=== PATIENT | female | born 1985 | race Caucasian/White ===

== ENCOUNTER 2017-12-01 16:52 | Day surgery (SDC) | payer OTHER ==
[2017-12-01] MEDS ORDERED: fentaNYL 100 MCG/2 ML INJ IVP ONE (17:30)
[2017-12-01] MEDS ORDERED: NS 1,000 ML IV ONE (17:30)
[2017-12-01 17:33] LABS: PLATELET COUNT 277 10^3/uL (150-400)
--- NOTE | 2017-12-01 17:34 | EDPHY ---
H & P Smoking Status: Never smoked Time Seen by Provider: 12/01/17 17:12 HPI/ROS: CHIEF COMPLAINT: Vaginal bleeding HISTORY OF PRESENT ILLNESS: 32-year-old female presents to the emergency department by private vehicle with her complaining of profuse vaginal bleeding. The patient had a recent miscarriage. She saw her OBGYN, Dr. Torrez , earlier today and had an ultrasound in the office which reveals some retained products. She is scheduled to have a D&C tomorrow morning. She states that when she got home from the office today she began profusely bleeding and passed "too large masses". She states she was bleeding heavily up until about an hour ago or so. She was beginning to feel lightheaded and her brought her to the emergency department for evaluation. She states that she is still having episodes of vaginal bleeding although it has slowed down some. She does feel a bit dizzy and weak. She is having abdominal cramping. She says that this is her 1st . She knows that she has a negative and requires RhoGAM and she has not received this yet. REVIEW OF SYSTEMS: Constitutional: No fever, no chills. Eyes: No double or blurry vision. ENT: No sore throat. Respiratory: No cough, no shortness of breath. Cardiac: No chest pain. Gastrointestinal: Abdominal pain as above. No vomiting or diarrhea. Genitourinary: No dysuria. Musculoskeletal: No neck or back pain. Skin: No rashes. Neurological: No headache. (Savana Tian) Past Medical/Surgical History: Last menstrual period 09/09/2017 (Savana Tian) Social History: (Savana Tian) Physical Exam: General Appearance: Alert, no distress. She appears pale. 114/77, heart rate 65, 99% on room air. Eyes: Pupils equal and round. Extraocular motions are all intact. ENT: Mouth: Mucous membranes moist. Respiratory: No wheezing, rhonchi, or rales, lungs are clear to auscultation. Cardiovascular: Regular rate and rhythm. Gastrointestinal: Abdomen is soft. She has tenderness with palpation especially the suprapubic area. There is no rebound, guarding or masses noted. Neurological: Alert and oriented x 3, cranial nerves II through XII grossly intact Skin: Warm and dry, no rashes. Musculoskeletal: Nontender to palpate along the cervical, thoracic or lumbar spine. Neck is supple. Extremities: Full range of motion and no peripheral edema. Psychiatric: Patient is oriented X 3, there is no agitation. (Savana Tian) Constitutional: Initial Vital Signs Temperature (C) 36.6 C 12/01/17 16:55 Heart Rate 64 12/01/17 16:55 Respiratory Rate 16 12/01/17 16:55 Blood Pressure 85/62 L 12/01/17 16:55 O2 Sat (%) 99 12/01/17 16:55 O2 Delivery Mode Room Air Allergies/Adverse Reactions: cefaclor [From Ceclor] Allergy (Verified 12/01/17 17:02) Medical Decision Making - Diagnostics Imaging: Discussed imaging studies w/ will call order clerk Radiologist ED Course/Re-evaluation: 32-year-old female presents to the emergency department with vaginal bleeding and miscarriage. The patient states that she saw her OBGYN earlier this morning and had evidence of retained products on bedside ultrasound. She is scheduled for D&C tomorrow morning. Presents with now vaginal bleeding. The patient's initial blood pressure was 80/60 and she appeared very pale. She received 2 L of IV normal saline and she is lying supine. She is feeling a bit better although when she sits up she feels very dizzy. Apparently when she ambulated to bathroom she passed 2 large clots and this was prior to the ultrasound. Ultrasound reveals evidence of retained products. I spoke with the on-call OBGYN, Dr. Jaquez, who offered admission to the hospital for D&C now or admission to the hospital for observation or she may be discharged home and likely miscarriage at home. The patient however feels very dizzy. She still looks a bit pale. She had a drop in her hematocrit from 40-37 % today. She has received 2 L of IV normal saline. The case was discussed with Dr. Loreto Olivo, supervising physician, who did not directly evaluate the patient but agrees with treatment plan. The patient elected to be admitted to Labor and delivery for D and C now. (Savana Tian) This pt was seen and examined by me. She is pale and dizzy after passing a large amount of blood into the toilet. Abd is soft, suprapubic tenderness. Will need admission for D+C. Hct 37, no indication for PRBC at this point. I agree with the assessment and plan. (Loreto Olivo) Differential Diagnosis: Including but not limited to retained products, missed , spontaneous , anemia (Savana Tian) - Data Points Laboratory Results: Laboratory Results 12/01/17 17:23 Medications Given: Discontinued Medications Doxycycline Hyclate (Doxycycline Hyclate) 100 mg PO ONCALL ONE PRN Reason: Protocol Stop: 12/01/17 20:08 Last Admin: 12/01/17 21:04 Dose: 100 mg Fentanyl (Sublimaze) 50 mcg IVP EDNOW ONE Stop: 12/01/17 17:31 Last Admin: 12/01/17 17:55 Dose: 50 mcg Sodium Chloride (Ns) 1,000 mls @ 0 mls/hr IV ONCE ONE PRN Reason: Wide Open Stop: 12/01/17 17:31 Last Admin: 12/01/17 17:40 Dose: 1,000 mls Ketorolac Tromethamine (Toradol) 30 mg IVP EDNOW ONE Stop: 12/01/17 17:57 Last Admin: 12/01/17 18:21 Dose: 30 mg Departure - Departure Disposition: To OP Cath/Surgery Clinical Impression: Miscarriage, Vaginal bleeding Condition: Good
[2017-12-01] MEDS ORDERED: KETOROLAC 30 MG/1 ML SDV IVP ONE (17:56)
[2017-12-01 19:36] VITALS: PULSE 80
[2017-12-01] MEDS ORDERED: DOXYCYCLINE HYCLATE 100 MG CAP/TAB PO ONE (20:07)
[2017-12-01] MEDS ORDERED: LR 1,000 ML IV SCH (20:30)
--- NOTE | 2017-12-01 20:39 | PDANEPAE ---
ANE History of Present Illness Missed Ab. ANE Past Medical History - Cardiovascular History Hx Hypertension: No Hx Arrhythmias: No Hx Chest Pain: No Hx Coronary Artery / Peripheral Vascular Disease: No Hx CHF / Valvular Disease: No Hx Palpitations: No - Pulmonary History Hx COPD: No Hx Asthma/Reactive Airway Disease: No Hx Recent Upper Respiratory Infection: No Hx Oxygen in Use at Home: No Hx Sleep Apnea: No ANE Review of Systems Review of systems is: negative Review of Systems: - Exercise capacity Exercise capacity: >=4 METS ANE Patient History - Allergies Allergies/Adverse Reactions: cefaclor [From Ceclor] Allergy (Verified 12/01/17 17:02) - Home Medications Home Medications: Vit27&Calcium/Iron/FA [] 1 each PO 12/01/17 [Last Taken Unknown ] - NPO status NPO Status: no food or drink >8 hours - Anes Hx Anes Hx: no prior problems - Smoking Hx Smoking Status: Never smoked Marijuana use: No - Alcohol Use Alcohol Use: Rarely - Family Anes Hx Family Anes Hx: none ANE Labs/Vital Signs - Labs Result Diagrams: 12/01/17 17:23 - Vital Signs Blood Pressure: 111/68 Heart Rate: 80 Respiratory Rate: 18 O2 Sat (%): 96 ANE Physical Exam - Airway Neck exam: FROM Mallampati Score: Class 1 Mouth exam: normal dental/mouth exam - Pulmonary Pulmonary: no respiratory distress - Cardiovascular Cardiovascular: regular rate and rhythym - ASA Status ASA Status: I ANE Anesthesia Plan Anesthesia Plan: GA with mask
[2017-12-01] MEDS ORDERED: METOCLOPRAMIDE 10 MG/2 ML VIAL ONE (20:46)
[2017-12-01] MEDS ORDERED: MIDAZOLAM 2 MG/2 ML VIAL ONE (20:47)
[2017-12-01] MEDS ORDERED: CITRIC ACID/SODIUM CITRATE 30 ML UDCUP ONE (20:47)
--- NOTE | 2017-12-01 20:59 | PDHPUP ---
History & Physical Update H&P update statement: This history and physical update is based on an assessment of the patient which was completed after admission or registration (within 24 hours), but prior to the surgery/procedure. H&P changes: Pt is now an incomplete Ab with heavy bleeding and cramps with u/s showing evidence of persistent thick lining. presented to ER with b/p 90/50 - now feeling better with fentynl and toradol
[2017-12-01] MEDS ORDERED: PROPOFOL/EMULSION 500 MG/50 ML BOTTLE IV ONE (21:05)
[2017-12-01] MEDS ORDERED: fentaNYL 100 MCG/2 ML INJ ONE (21:06)
[2017-12-01] MEDS ORDERED: DEXAMETHASONE 4 MG/ML VIAL ONE (21:07)
[2017-12-01] MEDS ORDERED: LIDOCAINE 2% 5 ML SDV ONE (21:07)
[2017-12-01] MEDS ORDERED: ONDANSETRON 4 MG/2 ML VIAL ONE (21:07)
--- NOTE | 2017-12-01 22:15 | POSTOPPROG ---
Post Op Note Date of Operation: 12/01/17 Surgeon: Maliha Jaquez Anesthesiologist: Reji Donnelly MD Anesthesia: LMA Pre-op Diagnosis: Incomplete Ab Post-op Diagnosis: same Indication: MAB at 6 wks, bld heavy and near syncopal, b/p low and retained tissue Procedure: dilation and currettage Findings: ut nl, easily dilated to 8.5 Briana, 8 tip used on suction, sm tissue obtain Inf/Abcess present in the surg proc area at time of surgery?: No Depth: Organ Space EBL: Minimal Specimen(s): POCs
[2017-12-01] MEDS ORDERED: NALOXONE HCL 0.4 MG/ML INJ IVP PRN (22:23)
[2017-12-01] MEDS ORDERED: HYDROCODONE/APAP 5/325 TAB PO PRN (22:23)
[2017-12-01] MEDS ORDERED: epHEDrine SULFATE 10 MG/ML SYR IVP PRN (22:23)
[2017-12-01] MEDS ORDERED: fentaNYL 100 MCG/2 ML INJ IVP PRN (22:23)
--- NOTE | 2017-12-01 22:26 | POSTANESTH ---
Post Anesthetic Evaluation Cardiovascular Status: Normal, Stable, Similar to Pre-Op Cond Respiratory Status: Normal, Stable, Similar to Pre-op Cond. Level of Consciousness/Mental Status: Can Participate in Eval, Alert and Oriented Pain Control: Adequate, Prn Tx Ordered Nausea/Vomiting Control: Adequate, Prn Tx Ordered Complications Possibly Related to Anesthesia: None Noted
[2017-12-01 23:24] VITALS: RESP 27
[2017-12-01 23:47] VITALS: TEMP 98.2
[2017-12-01 23:49] VITALS: BP 102/67; O2SAT 95
--- NOTE | 2017-12-02 05:49 | GOP ---
[f rep st] OPERATIVE REPORT DATE OF OPERATION: SURGEON: Maliha Jaquez MD ANESTHESIA: IV general anesthetic. ANESTHESIOLOGIST: Rashad Donnelly MD. PREOPERATIVE DIAGNOSIS: Incomplete . POSTOPERATIVE DIAGNOSIS: Incomplete . PROCEDURE PERFORMED: Dilation and curettage. FINDINGS: SPECIMENS: The specimens of the products of conception were sent to pathology. ESTIMATED BLOOD LOSS: 25 cc. INDICATIONS: Patient is a 32-year-old, G2, A1, who was seen at [facility] in October with an early ultrasound showing an intrauterine at 6 weeks 2 days with slow cardiac activity. The size was 12 days behind dating. The patient had a repeat ultrasound a week later, which showed further delay in size with no cardiac activity. The patient opted to proceed with a D and C af ter no spontaneous miscarriage happened. She was set up for D and C on December 02. She did start blee ding on November 28 and had increased bleeding throughout the weekend, however, it dramatically increased on November 30 with heavy bleeding and cramping. This increased further on the morning of December 01. T he patient was seen in the office and was advised she still had tissue. She was discharged home and after she began having significantly heavier bleeding, was brought to the emergency room and became s yncopal upon arrival. In the emergency room, the patient's blood pressure was 90/50 and the patient received 2 L of IV fluids. She became hemodynamically stable and ultrasound was performed which cont inued to show tissue consistent with retained products of conception. The patient was advised as to the risks and benefits and wanted to proceed with definitive management for an incomplete AB. DESCRIPTION OF PROCEDURE: The patient was taken to the operating room, where following satisfactory IV general anesthetic, the patient was placed in dorsal lithotomy position. The patient's perineum a nd vagina were prepped and the patient draped in the usual sterile manner for vaginal procedures. Th e patient had SCDs on her lower extremities and had received oral antibiotics prior to the procedure. The patient's perineum and vagina were prepped and the patient draped in usual sterile manner. A s terile speculum was placed within the vagina and an atraumatic grasper was placed on the anterior lip of the cervix. Gentle traction was applied. The cervix was easily dilated up to #8.5 Hegar dilator . A #8 tip was used on the suction machine, and a small amount of tissue was obtained. Several pass es were performed. Sharp curettage was performed and there was good uterine cry throughout the inter nal cavity. One final pass with the suction revealed no additional tissue. There was scant bleeding . An ultrasound was performed and there was a thin endometrium. The grasper was taken off the anter ior lip and there was no bleeding. The patient was cleaned off and taken out of position and taken t o the recovery room in stable condition. There was no infection at the time of surgery. No complica tions. /[id number]/MODL
== END 2017-12-02 01:20 | disposition home or self-care (01) ==
LOC: FOBOP 20:05
PROVIDERS: ATTEND Obstetrics & Gynecology
PROC: 10D17ZZ Extraction of Products of Conception, Retained, Via Natural or Artificial Opening (ICD-10-PCS; principal; 2017-12-01)
DX: O03.4 Incomplete spontaneous abortion without complication (principal); Z3A.01 Less than 8 weeks gestation of pregnancy
CPT/HCPCS: J1100; J1885; J2250; J2405; J2704; J2765; J3010

== ENCOUNTER → 2018-10-05 | Outpatient (CLI) | payer OTHER | LOC: FIMAGING 14:22 | PROVIDERS: ATTEND Obstetrics & Gynecology | DX: O09.521 Supervision of elderly multigravida, first trimester (principal); Z3A.01 Less than 8 weeks gestation of pregnancy ==

== ENCOUNTER → 2018-11-23 | Outpatient (CLI) | payer OTHER | LOC: FIMAGING 07:13 | PROVIDERS: ATTEND Obstetrics & Gynecology | DX: O09.522 Supervision of elderly multigravida, second trimester (principal); Z3A.20 20 weeks gestation of pregnancy ==